=== PATIENT | female | born 2005 | race Caucasian/White ===

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

== ENCOUNTER 2023-08-09 08:38 | Emergency (ER) | payer MEDICAID, SELFPAY ==
[2023-08-09 08:41] VITALS: PULSE 118; RESP 18; TEMP 38.1; O2SAT 95; BMI 30.9
[2023-08-09 08:45] VITALS: BP 126/95
--- NOTE | 2023-08-09 08:54 | XRR_ITS ---
PROCEDURE INFORMATION: Exam: XR Chest Exam date and time: 08/09/2023 9:07 AM Age: 17 years old Clinical indication: Cough and fever; Additional info: Fever cough TECHNIQUE: Imaging protocol: Radiologic exam of the chest. Views: 1 view. COMPARISON: CR XR chest 2V* [id number] 03/19/2020 10:22 AM FINDINGS: Lungs: Unremarkable. No consolidation. Pleural spaces: Unremarkable. No pleural effusion. No pneumothorax. Heart/Mediastinum: Unremarkable. No cardiomegaly. Bones/joints: Unremarkable. XR/XR chest 1V portable [id number] IMPRESSION: No acute findings.
[2023-08-09] MEDS: acetaminophen 500 mg Tablet 1000 MG PO (09:15)
[2023-08-09 09:27] LABS: Basophils % 0.2 %; Hematocrit 45.6 % (36-47); Lymphocytes # 0.7 10^3/uL (1.5-6.5); Lymphocytes % 11.5 %; Mean Corpuscular HGB Conc 32.9 g/dL (30-55); Mean Corpuscular Hemoglobin 30.1 pg (27-33); Mean Corpuscular Volume 91.6 fl (85-98); Mean Platelet Volume 10.2 fL (7.4-10.4); Monocytes # 0.3 10^3/uL (0.2-0.9); Monocytes % 5.4 %; Neutrophils # 5.02 10^3/uL (1.8-8.0); Neutrophils % 82.6 %; Nucleated Red Blood Cells % 0 %; Platelet Count 154 10^3/cmm (157-399); Red Blood Count 4.98 10^6/uL (3.85-5.65); Red Cell Distribution Width 12.1 % (12.1-15.1); White Blood Count 6.08 10^3/uL (4.5-13.0)
--- NOTE | 2023-08-09 09:40 | ED_ITS ---
HPI - Fever 2 General: Chief Complaint: Fever Stated Complaint: fever, cough Time Seen by Provider: 08/09/23 09:10 History of Present Illness: Patient presents to the ER today for fever and cough. Started Saturday. Patient verbalizes some nausea. She has been taking some OTC meds but they do not seem to be working. Patient was tested for COVID yesterday and she said it was negative advertent great. On arrival today patient's temperature is 100.5 and her pulse is 118. Patient does not appear toxic. Patient also complains of sore throat. PFSH ED 2 PFSH: Medical History Gross hematuria Recurrent UTI Surgical History S/P tonsillectomy and adenoidectomy H/O thumb surgery Family History Mother Healthy adult Father Healthy adult Social History Smoking and tobacco/nicotine status: never used tobacco/nicotine Alcohol intake: never Substance/Drug Use: never Marital status: Single Current occupational status: employed Physical Exam 2 Const: COMMON NORMALS: no acute distress, average body habitus, patient oriented x3, no limitations, healthy appearing, alert and well nourished HENMT: COMMON NORMALS: normocephalic, atraumatic, hearing grossly normal bilaterally, external ears normal, Normal external nose present and moist oral mucous membranes; oropharynx not normal (Reddened posterior pharynx) HEAD & SCALP: n ormocephalic and atraumatic NOSE: Normal external nose present EXTERNAL EAR: Yes external ears normal Eye: COMMON NORMALS: Equal, round and reactive pupils present, EOMs intact bilaterally, conjunctivae normal and no scleral icterus CONJUNCTIVA: Yes conjunctivae normal PUPIL: Yes Equal, round and reactive pupils present Neck/C-Spine: COMMON NORMALS: full ROM, supple, no meningeal signs, no JVD and Thyroid normal; negative for no lymphadenopathy (Lymphadenopathy tender to palpation) T HYROID: Thyroid normal Chest: COMMONS NORMALS: normal inspection of the chest and normal palpation of entire chest wall Resp: COMMON NORMALS: normal respiratory effort, No retractions, No use of accessory muscles and clear to auscultation bilaterally AUSCULTATION: clear to auscultation bilaterally Cardio: COMMON NORMALS: no JVD, regular rhythm, S1 normal heart sound present, S2 normal heart sound present, No gallops present (Cardio), No clicks present (Cardio), No murmurs present (Cardio) and No rub (Cardio); negative for regular rate (Mildly tachycardic) RATE: abnormal rate (Mildly tachycardic) RHYTHM: regular rhythm HEART SOUNDS: S1 normal heart sound present and S2 normal heart sound present GI: COMMON NORMALS: Normal to inspection, nondistended, normoactive bowel sounds present, Soft to palpation, non-tender, No hepatosplenomegaly present and no masses PALPATION: Yes Soft to palpation and Yes No hepatosplenomegaly present Neuro: COMMON NORMALS: patient oriented x3 SENSORIUM/ORIENTATION: Yes alert MENINGEAL SIGNS: Yes no meningeal signs Course 2 Vital Signs: Vital signs: Vital Signs Temperature 100.5 F H 08/09/23 08:41 Pulse Rate 118 H 08/09/23 08:41 Respiratory Rate 18 08/09/23 08:41 Blood Pressure 126/95 08/09/23 08:45 Pulse Oximetry 95 08/09/23 08:41 Oxygen Delivery Me thod Room Air 08/09/23 08:41 MDM - Fever Medical Decision Making Patient presents with cough and fever. Patient had CBC CMP group A strep and urinalysis performed along with chest x-ray. All of which was essentially benign. Patient states she had a COVID done yesterday at [facility]. Which was negative. Patient will be discharged with diagnosis of URI and fever and should follow-up with her PCP on an as-needed basis. Differential Diagnosis Unlikely abdominal pain, acute appendicitis, calculus of kidney, constipation, diverticulitis, endometriosis, gastroenteritis, pancreatitis or small bowel obstruction Medical Records I reviewed the patient's medical records. Lab Data I reviewed the patient's lab results. 08/09/23 09:19 08/09/23 09:19 Radiology Impressions Chest X-Ray 08/09/23 08:54 IMPRESSION: No acute findings. Laboratory Results WBC 6.08 10^3/uL (4.5-13.0) 08/09/23 09:19 RBC 4.98 10^6/uL (3.85-5.65) 08/09/23 09:19 Hgb 15.00 g/dL (12.4-14.8) H 08/09/23 09:19 Hct 45.6 % (36-47) 08/09/23 09:19 MCV 91.6 fl (85-98) 08/09/23 09:19 MCH 30.1 pg (27-33) 08/09/23 09:19 MCHC 32.9 g/dL (30-55) 08/09/23 09:19 RDW 12.1 % (12.1-15.1) 08/09/23 09:19 Plt Count 154 10^3/cmm (157-399) L 08/09/23 09:19 MPV 10.2 fL (7.4-10.4) 08/09/23 09:19 Neut % (Auto) 82.6 % 08/09/23 09:19 Lymph % (Auto) 11.5 % 08/09/23 09:19 [place] % (Auto) 5.4 % 08/09/23 09:19 Eos % (Auto) 0.0 % 08/09/23 09:19 Baso % (Auto) 0.2 % 08/09/23 09:19 Neut # (Auto) 5.02 10^3/uL (1.8-8.0) 08/09/23 09:19 Lymph # (Auto) 0.7 10^3/uL (1.5-6.5) L 08/09/23 09:19 [place] # (Auto) 0.3 10^3/uL (0.2-0.9) 08/09/23 09:19 Eos # (Auto) 0.0 10^3/uL (0.0-0.8) 08/09/23 09:19 Baso # (Auto) 0.0 10^3/uL (0.0-0.1) 08/09/23 09:19 Nucleated RBC % (auto) 0 % 08/09/23 09:19 Nucleated RBCs # 0.0 /100WBC 08/09/23 09:19 Sodium 136 mmol/L (136-145) 08/09/23 09:19 Potassium 3.7 mmol/L (3.5-5.1) 08/09/23 09:19 Chloride 103 mmol/L (98-107) 08/09/23 09:19 Carbon Dioxide 21 mmol/L (22-29) L 08/09/23 09:19 Anion Gap 15.7 (5-19) 08/09/23 09:19 BUN 9 mg/dL (6-20) 08/09/23 09:19 Creatinine 0.7 mg/dL (0.5-0.9) 08/09/23 09:19 GFR Calculation 107.8 mL/min (90-130) 08/09/23 09:19 Glucose 135 mg/dL (65-115) H 08/09/23 09:19 Calculated Osmolality 283 mOsm/kg (285-295) L 08/09/23 09:19 Calcium 9.2 mg/dL (8.5-10.5) 08/09/23 09:19 Total Bilirubin 0.3 mg/dL (0.15-1.2) 08/09/23 09:19 AST 24 U/L (0-32) 08/09/23 09:19 ALT 24 U/L (0-33) 08/09/23 09:19 Alkaline Phosphatase 76 U/L (35-105) 08/09/23 09:19 Total Protein 7.5 g/dL (6.6-8.7) 08/09/23 09:19 Albumin 4.2 g/dL (3.5-5.2) 08/09/23 09:19 Globulin 3.3 g/dL (1.3-4.6) 08/09/23 09:19 Urine Color Yellow (Yellow) 08/09/23 09:03 Urine Appearance Hazy (CLEAR) A 08/09/23 09:03 Urine pH 5 (5-7) 08/09/23 09:03 Ur Specific [place] 1.015 (1.005-1.030) 08/09/23 09:03 Urine Protein 1+ (Negative) H 08/09/23 09:03 Urine Glucose (UA) Norm (Normal) 08/09/23 09:03 Urine Ketones 2+ (Negative) H 08/09/23 09:03 Urine Blood Trace (Negative) H 08/09/23 09:03 Urine Nitrate Negative (Negative) 08/09/23 09:03 Urine Bilirubin Neg (Negative) 08/09/23 09:03 Urine Urobilinogen 1 mg/dL (Negative) H 08/09/23 09:03 Ur Leukocyte Esterase 1+ (Negative) H 08/09/23 09:03 Urine RBC 0-4 /hpf (0-2) H 08/09/23 09:03 Urine WBC 10-15 /hpf (0-5) H 08/09/23 09:03 Ur Squamous Epith Cells 55-80 /hpf (0-5) H 08/09/23 09:03 Amorphous Sediment Not Reportable 08/09/23 09:03 Urine Bacteria 4+ /hpf (NONE) H 08/09/23 09:03 Group A Strep Rapid Negative (Negative) 08/09/23 09:32 All radiology interpretation(s) finalized by discharge Discharge Plan Discharge Patient Disposition: Home Clinical Impression: Viral URI, Fever Condition: Stable Prescriptions: No Action Vicks DayQuil-NyQuil 10-5-325mg(d)/ 15-325-6.25mg Capsule, Sequential 2 cap PO Q6H Discharge Orders: Discharge ED (Routine); Ordered 08/09/23 Ordered By: Casper Valadez Patient Instructions: Upper Respiratory Infection (ED), Fever - Adult Activity Restrictions/Additional Instructions: Please use Tylenol or ibuprofen to control your fever. Please push plenty of fluids. Please follow-up with your family practice physician within the next 7 to 10 days for further evaluation and treatment as needed. Coding Level of Care Code ED Manager Creative for Carlin Bernal
[2023-08-09 09:48] LABS: Alanine Aminotransferase 24 U/L (0-33); Albumin Level 4.2 g/dL (3.5-5.2); Alkaline Phosphatase 76 U/L (35-105); Anion Gap 15.7 (5-19); Aspartate Amino Transferase 24 U/L (0-32); Blood Urea Nitrogen 9 mg/dL (6-20); Calcium 9.2 mg/dL (8.5-10.5); Carbon Dioxide 21 mmol/L (22-29); Chloride 103 mmol/L (98-107); Globulin 3.3 g/dL (1.3-4.6); Glomerular Filtration Rate 107.8 mL/min (90-130); Glucose 135 mg/dL (65-115); Osmolality Calculated 283 mOsm/kg (285-295); Potassium 3.7 mmol/L (3.5-5.1); Sodium 136 mmol/L (136-145); Total Bilirubin 0.3 mg/dL (0.15-1.2); Total Protein 7.5 g/dL (6.6-8.7)
[2023-08-09 10:16] LABS: Add Urine Culture? No; Add Urine Microscopic? YES; Bacteria Urine 4+ /hpf; Bilirubin Urine Neg (Negative); Blood Urine Trace (Negative); Glucose Urine UA Norm (Normal); Ketones Urine 2+ (Negative); Leukocyte Esterase Urine 1+ (Negative); Nitrate Urine Negative (Negative); Protein Urine 1+ (Negative); RBC Urine 0-4 /hpf (0-2); Specific Gravity, Urine 1.015 (1.005-1.030); Squamous Epithelial Cell Urine 55-80 /hpf (0-5); Urine Appearance Hazy (CLEAR); Urine Color Yellow (Yellow); Urobilinogen Urine 1 mg/dL (Negative); pH Urine 5 (5-7)
[2023-08-09 10:23] LABS: Rapid Strep A Test Negative (Negative)
== END 2023-08-09 10:33 | disposition home or self-care (01) ==
PROVIDERS: Emergency Provider Emergency Medicine
DX: J06.9 Acute upper respiratory infection, unspecified (principal)
CPT/HCPCS: 36415; 71045; 80053; 81001; 85025; 87081; 87880; 99284

== ENCOUNTER 2024-02-07 05:41 | Emergency (ER) | payer MEDICAID, SELFPAY ==
[2024-02-07 05:49] VITALS: BP 127/78; PULSE 84; RESP 20; TEMP 36.7; O2SAT 98; BMI 31.3
--- NOTE | 2024-02-07 06:09 | ED_ITS ---
HPI - Nausea/Vomiting/Diarrhea 2 General: Chief complaint: Nausea/Vomiting/Diarrhea Stated complaint: abd pain n/v/d bloat..thought food poisoning Time Seen by Provider: 02/07/24 05:53 Source: patient Mode of arrival: ambulatory History of Present Illness: 18-year-old female presents emergency ro om complaining of abdominal discomfort began over the last 4 days. She had nausea and vomiting initially that stopped several days ago but then she began having some loose stools and diarrhea she feels very bloated. She denies any dysuria urgency or frequency. She states she has some chronic diarrhea but no hematochezia. She took some Pepto-Bismol without relief. MD elicited complaint: nausea, vomiting and diarrhea Onset (ago): day(s) (4) Description of vomiting: food contents and watery Associated nausea: Yes Associated abdominal pain: Yes Location of pain: Diffuse Severity: mild Quality: cramping Exacerbating factors: none Relieving factors: none Associated symtoms: Reports anorexia and nausea; Denies altered mental status, anxiety, bloating, change in vision, chest pain, cough, diaphoresis, decreased urine output, dizziness, dysuria, epistaxis, fatigue, fecal incontinence, fevers/chills, headache(s), malaise, myalgias, numbness, palpitations, rash, short of breath, syncope, tenesmus, tinnitus or weakness Treatment prior to arrival: other (Pepto-Bismol) Review of Systems 2 Const: Denies: fever(s), chills, fatigue, malaise or diaphoresis Eyes: Denies: change in vision ENMT: Denies: tinnitus or epistaxis Card: Denies: chest pain, palpitations or syncope Resp: Denies: dyspnea GI: Reports: nausea; Denies: abdominal pain, bloating or fecal incontinence : Denies: dysuria, urinary frequency or urinary urgency Musc: Denies: neck pain or back pain Skin/Breast: Denies: rash Neuro: Denies: headache(s) or dizziness Psych: Denies: anxiety PFSH ED 2 PFSH: Medical History Gross hematuria Recurrent UTI Surgical History S/P tonsillectomy and adenoidectomy H/O thumb surgery Family History Mother Healthy adult Father Healthy adult Social History Smoking and tobacco/nicotine status: never used tobacco/nicotine Alcohol intake: never Substance/Drug Use: never Marital status: Single Current occupational status: employed Physical Exam 2 Const: COMMON NORMALS: no acute distress EXAM LIMITATIONS: no altered mental status GENERAL APPEARANCE: cooperative and comfortable O RIENTATION/CONSCIOUSNESS: Yes awake, Yes oriented to person, Yes oriented to place and Yes oriented to time HENMT: COMMON NORMALS: normocephalic, atraumatic and hearing grossly normal bilaterally HEAD & SCALP: normocephalic and atraumatic Resp: COMMON NORMALS: normal respiratory effort, No retractions, No use of accessory muscles and clear to auscultation bilaterally AUSCULTATION: clear to auscultation bilaterally Cardio: COMMON NORMALS: regular rate, regular rhythm and No murmurs present (Cardio) RATE: regular rate RHYTHM: regular rhythm GI: COMMON NORMALS: Soft to palpation and No hepatosplenomegaly present A USCULTATION: Yes normoactive bowel sounds PALPATION: Yes Soft to palpation, No Tenderness to palpation present (GI), No Guarding due to palpation present (GI) and Yes No hepatosplenomegaly present Extremity: COMMON NORMALS: normal to inspection, capillary refill normal, no clubbing, cyanosis or edema, no calf tenderness and no pedal edema Neuro: SENSORIUM/ORIENTATION: Yes oriented to person, Yes oriented to place and Yes oriented to time Skin: COMMON NORMALS: no rashes or lesions noted GENERAL SKIN EXAM: no rashes or lesions noted Course 2 Vital Signs: Vital signs: Vital Signs Temperature 98.1 F 02/07/24 05:49 Pulse Rate 81 02/07/24 06:32 Respiratory Rate 16 02/07/24 06:32 Blood Pressure 91/77 02/07/24 06:32 Pulse Oximetry 96 02/07/24 06:32 Oxygen Delivery Me thod Room Air 02/07/24 06:32 MDM - Nausea/Vomiting/Diarrhea Medical Decision Making No leukocytosis. Mild elevation of liver enzymes but no right upper quadrant pain on initial exam or repeat exam. Your symptoms already do seem to be improving. She states she is back at her normal baseline stools which are chronically loose. Nothing at this time suggestive of an acute cholecystitis. Will discharge patient home on clear liquid diet ondansetron as needed advance diet as tolerated. She has worsening or persistent symptoms or symptoms change return to the emergency room Medical Records I reviewed the patient's medical records. Lab Data I reviewed the patient's lab results. 02/07/24 05:57 02/07/24 05:57 Laboratory Results WBC 4.39 10^3/uL (4.5-13.0) L 02/07/24 05:57 RBC 5.00 10^6/uL (3.85-5.65) 02/07/24 05:57 Hgb 15.00 g/dL (12.4-14.8) H 02/07/24 05:57 Hct 46.1 % (36-47) 02/07/24 05:57 MCV 92.2 fl (85-98) 02/07/24 05:57 MCH 30.0 pg (27-33) 02/07/24 05:57 MCHC 32.5 g/dL (30-55) 02/07/24 05:57 RDW 12.5 % (12.1-15.1) 02/07/24 05:57 Plt Count 199 10^3/cmm (157-399) 02/07/24 05:57 MPV 10.0 fL (7.4-10.4) 02/07/24 05:57 Neut % (Auto) 45.3 % 02/07/24 05:57 Lymph % (Auto) 43.3 % 02/07/24 05:57 [place] % (Auto) 10.3 % 02/07/24 05:57 Eos % (Auto) 0.7 % 02/07/24 05:57 Baso % (Auto) 0.2 % 02/07/24 05:57 Neut # (Auto) 1.99 10^3/uL (1.8-8.0) 02/07/24 05:57 Lymph # (Auto) 1.9 10^3/uL (1.5-6.5) 02/07/24 05:57 [place] # (Auto) 0.5 10^3/uL (0.2-0.9) 02/07/24 05:57 Eos # (Auto) 0.0 10^3/uL (0.0-0.8) 02/07/24 05:57 Baso # (Auto) 0.0 10^3/uL (0.0-0.1) 02/07/24 05:57 Nucleated RBC % (auto) 0 % 02/07/24 05:57 Nucleated RBCs # 0.0 /100WBC 02/07/24 05:57 Sodium 140 mmol/L (136-145) 02/07/24 05:57 Potassium 3.4 mmol/L (3.5-5.1) L 02/07/24 05:57 Chloride 106 mmol/L (98-107) 02/07/24 05:57 Carbon Dioxide 21 mmol/L (22-29) L 02/07/24 05:57 Anion Gap 16.4 (5-19) 02/07/24 05:57 BUN 13 mg/dL (6-20) 02/07/24 05:57 Creatinine 0.7 mg/dL (0.5-0.9) 02/07/24 05:57 GFR Calculation 106.7 mL/min (90-130) 02/07/24 05:57 Glucose 89 mg/dL (65-115) 02/07/24 05:57 Calculated Osmolality 290 mOsm/kg (285-295) 02/07/24 05:57 Calcium 8.8 mg/dL (8.5-10.5) 02/07/24 05:57 Total Bilirubin 0.2 mg/dL (0.15-1.2) 02/07/24 05:57 AST 35 U/L (0-32) H 02/07/24 05:57 ALT 66 U/L (0-33) H 02/07/24 05:57 Alkaline Phosphatase 78 U/L (35-105) 02/07/24 05:57 Total Protein 7.9 g/dL (6.6-8.7) 02/07/24 05:57 Albumin 4.3 g/dL (3.5-5.2) 02/07/24 05:57 Globulin 3.6 g/dL (1.3-4.6) 02/07/24 05:57 Lipase 28 U/L (13-60) 02/07/24 05:57 Urine Color Yellow (Yellow) 02/07/24 06:18 Urine Appearance Clear (CLEAR) 02/07/24 06:18 Urine pH 5 (5-7) 02/07/24 06:18 Ur Specific [place] 1.025 (1.005-1.030) 02/07/24 06:18 Urine Protein Trace (Negative) 02/07/24 06:18 Urine Glucose (UA) Norm (Normal) 02/07/24 06:18 Urine Ketones Negative (Negative) 02/07/24 06:18 Urine Blood Neg (Negative) 02/07/24 06:18 Urine Nitrate Negative 02/07/24 06:18 Urine Bilirubin Neg (Negative) 02/07/24 06:18 Urine Urobilinogen Neg mg/dL (Negative) 02/07/24 06:18 Ur Leukocyte Esterase Negative (Negative) 02/07/24 06:18 Urine RBC 0-4 /hpf (0-2) H 02/07/24 06:18 Urine WBC None /hpf (0-5) 02/07/24 06:18 Ur Squamous Epith Cells 10-15 /hpf (0-5) H 02/07/24 06:18 Amorphous Sediment Not Reportable 02/07/24 06:18 Urine Bacteria 2+ /hpf (NONE) H 02/07/24 06:18 Urine Mucus 2+ /hpf 02/07/24 06:18 No radiology studies performed this visit Discharge Plan Discharge Patient Disposition: Home Clinical Impression: Gastroenteritis Condition: Stable Prescriptions: New ondansetron HCl 4 mg tablet 4 mg PO Q6H PRN (Reason: nausea and vomiting) Qty: 20 0RF No Action Enskyce 0.15-0.03 mg tablet 1 tab PO DAILY Discharge Orders: Discharge ED (Routine); Ordered 02/07/24 Ordered By: Karl Murphy Discharge Diet: Usual diet Discharge Activity: Increase activity as tolerated Patient Instructions: Gastroenteritis (ED), Opioid Safety, Pain Management Activity Restrictions/Additional Instructions: Thank you for choosing [facility] for your healthcare needs today. It is very important that you follow up as instructed or that you return to the Emergency Department should you have concerns or if your condition changes or worsens in any way. You are seen in the emergency room with complaints of nausea vomiting and diarrhea. Your abdominal exam was did not show signs of an acute abdomen your laboratory studies did not show elevated white count. Recommend clear liquid diet for 24 to 48 hours return if you have further problems. Coding Level of Care Code ED Manager Corporate for Carlin Bernal
[2024-02-07 06:15] LABS: Basophils % 0.2 %; Eosinophils % 0.7 %; Hematocrit 46.1 % (36-47); Lymphocytes # 1.9 10^3/uL (1.5-6.5); Lymphocytes % 43.3 %; Mean Corpuscular HGB Conc 32.5 g/dL (30-55); Mean Corpuscular Volume 92.2 fl (85-98); Monocytes # 0.5 10^3/uL (0.2-0.9); Monocytes % 10.3 %; Neutrophils # 1.99 10^3/uL (1.8-8.0); Neutrophils % 45.3 %; Nucleated Red Blood Cells % 0 %; Platelet Count 199 10^3/cmm (157-399); Red Cell Distribution Width 12.5 % (12.1-15.1); White Blood Count 4.39 10^3/uL (4.5-13.0)
[2024-02-07] MEDS: sodium chloride 0.9% 1,000 ML 999 ML IV (06:28)
[2024-02-07] MEDS: ondansetron 2 mg/ML SDV 2 mL 4 MG IVP (06:28)
[2024-02-07 06:29] LABS: Alanine Aminotransferase 66 U/L (0-33); Albumin Level 4.3 g/dL (3.5-5.2); Alkaline Phosphatase 78 U/L (35-105); Anion Gap 16.4 (5-19); Aspartate Amino Transferase 35 U/L (0-32); Blood Urea Nitrogen 13 mg/dL (6-20); Calcium 8.8 mg/dL (8.5-10.5); Carbon Dioxide 21 mmol/L (22-29); Chloride 106 mmol/L (98-107); Globulin 3.6 g/dL (1.3-4.6); Glomerular Filtration Rate 106.7 mL/min (90-130); Glucose 89 mg/dL (65-115); Lipase 28 U/L (13-60); Osmolality Calculated 290 mOsm/kg (285-295); Potassium 3.4 mmol/L (3.5-5.1); Sodium 140 mmol/L (136-145); Total Bilirubin 0.2 mg/dL (0.15-1.2); Total Protein 7.9 g/dL (6.6-8.7)
[2024-02-07 06:32] VITALS: BP 91/77; PULSE 81; RESP 16; O2SAT 96
[2024-02-07 06:37] LABS: Bilirubin Urine Neg (Negative); Blood Urine Neg (Negative); Glucose Urine UA Norm (Normal); Ketones Urine Negative (Negative); Leukocyte Esterase Urine Negative (Negative); Nitrate Urine Negative; Protein Urine Trace (Negative); Specific Gravity, Urine 1.025 (1.005-1.030); Urine Appearance Clear (CLEAR); Urine Color Yellow (Yellow); Urobilinogen Urine Neg (Negative); pH Urine 5 (5-7)
[2024-02-07 06:38] LABS: Add Urine Microscopic? YES
[2024-02-07 06:39] LABS: Add Urine Culture? No; Bacteria Urine 2+ /hpf; Mucus Urine 2+ /hpf; RBC Urine 0-4 /hpf (0-2)
[2024-02-07 08:06] VITALS: BP 97/78; PULSE 63; O2SAT 97
== END 2024-02-07 08:09 | disposition home or self-care (01) ==
PROVIDERS: Emergency Provider Family Medicine
DX: K52.9 Noninfective gastroenteritis and colitis, unspecified (principal)
CPT/HCPCS: 80053; 81001; 83690; 85025; 96374; 99284; J2405; J7030

== ENCOUNTER 2024-12-01 11:51 | Emergency (ER) | payer MEDICAID, SELFPAY ==
[2024-12-01 12:08] VITALS: BP 97/61; PULSE 84; RESP 16; TEMP 36.7; O2SAT 99
[2024-12-01 12:39] LABS: Basophils % 0.1 %; Eosinophils % 0.2 %; Hematocrit 40.6 % (36-47); Lymphocytes # 1.5 10^3/uL (0.8-4.8); Lymphocytes % 16.4 %; Mean Corpuscular HGB Conc 33.5 g/dL (30-55); Mean Corpuscular Hemoglobin 30.3 pg (27-33); Mean Corpuscular Volume 90.4 fl (85-98); Mean Platelet Volume 9.7 fL (7.4-10.4); Monocytes # 0.5 10^3/uL (0.2-0.9); Monocytes % 5.4 %; Neutrophils # 7.01 10^3/uL (1.8-7.7); Neutrophils % 77.8 %; Nucleated Red Blood Cells % 0 %; Platelet Count 254 10^3/cmm (157-399); Red Blood Count 4.49 10^6/uL (3.85-5.65); Red Cell Distribution Width 12.2 % (12.1-15.1); White Blood Count 9.02 10^3/uL (3.29-11.43)
[2024-12-01 12:51] LABS: HCG, Serum Qual Positive (Negative)
[2024-12-01 13:04] LABS: Alanine Aminotransferase 19 U/L (0-33); Alkaline Phosphatase 71 U/L (35-105); Anion Gap 16.8 (5-19); Aspartate Amino Transferase 17 U/L (0-32); Blood Urea Nitrogen 8 mg/dL (6-20); Calcium 9.1 mg/dL (8.5-10.5); Carbon Dioxide 23 mmol/L (22-29); Chloride 104 mmol/L (98-107); Creatinine Clr Calc Pharmacy 201.3672; Globulin 2.9 g/dL (1.3-4.6); Glomerular Filtration Rate 155.7 mL/min (90-130); Glucose 90 mg/dL (65-115); Lipase 28 U/L (13-60); Osmolality Calculated 288 mOsm/kg (285-295); Potassium 3.8 mmol/L (3.5-5.1); Sodium 140 mmol/L (136-145); Total Bilirubin 0.2 mg/dL (0.15-1.2); Total Protein 6.9 g/dL (6.6-8.7)
--- NOTE | 2024-12-01 15:21 | USR_ITS ---
PROCEDURE INFORMATION: Exam: US First Trimester, Transabdominal and US , Transvaginal Exam date and time: 12/01/2024 4:04 PM Age: 19 years old Clinical indication: Screening exam; Routine US, uterus; Additional info: 6 weeks preg, abd pain LABS AND CLINICAL REPORTS: Last menstrual period start date: 10/07/2024 TECHNIQUE: Imaging protocol: Real-time transabdominal obstetrical ultrasound of the maternal pelvis and a first trimester , less than 14 weeks 0 days, with image documentation. Transvaginal imaging was used for better evaluation of the fetus, adnexa, and/or cervix. COMPARISON: US pelvic complete* [id number] 03/10/2022 7:15 PM FINDINGS: GESTATION: Gestation: Single live intrauterine . Normal-appearing gestational sac. Normal-appearing pole. Normal-appearing yolk sac. Embryo/ cardiac activity (BPM): 152 bpm. Extra-embryonic membranes/Placenta: No evidence of subchorionic hemorrhage. Amniotic/Chorionic fluid: Normal amount of amniotic fluid. BIOMETRY: Gestational age (AUA): Estimated gestational age is 7 weeks and 4 days by ultrasound measurements. Seven weeks 6 days with menstrual dating. Estimated due date (AUA): Estimated date of delivery by ultrasound is July 16, 2025. July 14, 2025 with menstrual dating. MATERNAL: Uterus: Otherwise, unremarkable uterus. Cervix: Unremarkable. Endocervical canal is closed. Right ovary/adnexa: Unremarkable right ovary. No solid right adnexal masses. Left ovary/adnexa: Left ovary not visualized. No solid left adnexal mass is identified. Intraperitoneal space: No free fluid. US/US OB <=14 wk fetus w transvag IMPRESSION: Normal-appearing single live intrauterine at 7 weeks 4 days by ultrasound measurements and 7 weeks 6 days by menstrual dating.
[2024-12-01 15:42] VITALS: BP 112/76; PULSE 76; O2SAT 100
[2024-12-01] MEDS: acetaminophen 325 mg Tablet 650 MG PO (15:43)
[2024-12-01] MEDS: sodium chloride 0.9% 1,000 ML 999 ML IV (15:43)
[2024-12-01 16:00] VITALS: BP 109/80; PULSE 83; O2SAT 100
[2024-12-01 16:26] LABS: Bilirubin Urine Negative (Negative); Blood Urine Negative (Negative); Glucose Urine UA Negative (Normal); Ketones Urine Negative (Negative); Leukocyte Esterase Urine Trace (Negative); Nitrate Urine Negative (Negative); Protein Urine Negative (Negative); Specific Gravity, Urine 1.025 (1.005-1.030); Urine Appearance Clear (CLEAR); Urine Color Yellow (Yellow)
[2024-12-01 16:31] LABS: Add Urine Microscopic? YES; Bacteria Urine None Seen /hpf; RBC Urine 0-2 /hpf (0-2); Squamous Epithelial Cell Urine 0-5 /hpf (0-5); WBC Urine 0-5 /hpf (0-5)
[2024-12-01 16:59] LABS: Add Urine Culture? No
[2024-12-01 17:30] VITALS: BP 98/62; PULSE 78; O2SAT 100
--- NOTE | 2024-12-01 18:11 | ED_ITS ---
HPI - Abdominal Pain 2 General: Chief Complaint: Abdominal Pain Stated Complaint: abd pain Time Seen by Provider: 12/01/24 14:47 History of Present Illness: 19-year-old female with recent approximately 6 weeks is presenting with left lower quadrant abdominal pain has been going on for the past couple days as well associated with gurgling sounds in her abdomen associate with nausea no vomiting some loose stools. Denies any urinary symptoms denies fever. She has not had an ultrasound yet. Associated Symptoms: Reports diarrhea and nausea; Denies chills, dysuria, fever(s) and vomiting Related Data Home Medications ?Medication ?Instructions ?Recorded ?Confirmed No Known Home Medications 12/01/2411/11 Allergies Allergy/AdvReac Type Severity Reaction Status Date / Time No Known Allergies Allergy Verified 08/09/23 08:45 Review of Systems 2 Const: Denies: fever(s) or chills Eyes: Denies: change in vision ENMT: Denies: throat pain Card: Denies: chest pain, palpitations or irregular heart rhythm Resp: Denies: dyspnea or productive cough GI: Reports: abdominal pain, nausea and diarrhea; Denies: vomiting : Denies: flank pain, difficulty voiding, dysuria, urinary urgency, vaginal bleeding or vaginal discharge Musc: Denies: back pain or extremity pain Skin/Breast: Denies: rash Neuro: Reports: headache(s) PFSH ED 2 PFSH: Medical History Gross hematuria Recurrent UTI Surgical History S/P tonsillectomy and adenoidectomy H/O thumb surgery Family History Mother Healthy adult Father Healthy adult Social History Smoking and tobacco/nicotine status: never used tobacco/nicotine Alcohol intake: never Substance/Drug Use: never Marital status: Single Current occupational status: employed Physical Exam 2 Const: COMMON NORMALS: no acute distress, patient oriented x3 and alert HENMT: COMMON NORMALS: normocephalic HEAD & SCALP: normocephalic Eye: COMMON NORMALS: Equal, round and reactive pupils present, EOMs intact bilaterally and conjunctivae normal CONJUNCTIVA: Yes conjunctivae normal P UPIL: Yes Equal, round and reactive pupils present Neck/C-Spine: COMMON NORMALS: full ROM, no lymphadenopathy and no JVD Chest: COMMONS NORMALS: normal inspection of the chest Resp: COMMON NORMALS: normal respiratory effort, No use of accessory muscles and clear to auscultation bilaterally EFFORT & INSPECTION: Yes able to speak in complete sentences AUSCULTATION: clear to auscultation bilaterally, no crackles, no rales, no rhonchi and no wheezes Cardio: COMMON NORMALS: no JVD, regular rhythm, S1 normal heart sound present and S2 normal heart sound present RHYTHM: regular rhythm HEART SOUNDS: S1 normal heart sound present and S2 normal heart sound present GI: COMMON NORMALS: Normal to inspection, nondistended, normoactive bowel sounds present, Soft to palpation and non-tender PALPATION: Yes Soft to palpation : COMMON NORMALS: Yes no CVA tenderness BLADDER/KIDNEY EXAM: Yes no CVA tenderness Back/Pelvis: COMMON NORMALS: no CVA tenderness Extremity: COMMON NORMALS: normal to inspection, full ROM and capillary refill normal Neuro: COMMON NORMALS: patient oriented x3 and CN's II-XII intact bilaterally SENSORIUM/ORIENTATION: Yes alert Course 2 Vital Signs: Vital signs: Vital Signs Temperature 98.1 F 12/01/24 12:08 Pulse Rate 78 12/01/24 17:30 Respiratory Rate 16 12/01/24 12:08 Blood Pressure 98/62 12/01/24 17:30 Pulse Oximetry 100 12/01/24 17:30 Oxygen Delivery Me thod Room Air 12/01/24 17:30 MDM - Abdominal Pain Medical Decision Making Patient with left lower quadrant abdominal pain in first trimester evaluated with workup consistent with likely abdominal crampy pain secondary to acute gastroenteritis or viral GI illness. UA negative for acute UTI. Ultrasound demonstrates IUP that is in place, do not suspect ectopic at this point. IUP seems to be normal. No anemia and no leukocytosis on the CBC. Her Rh is positive otherwise no significant abnormalities in the workup. She does feel improved she is well-appearing she is comfortable she is stable for discharge at this time all results discussed with the patient. Lab Data 12/01/24 12:33 12/01/24 12:33 Labs/Radiology: Radiology Impressions Obstetrics Ultrasound 12/01/24 15:21 IMPRESSION: Normal-appearing single live intrauterine at 7 weeks 4 days by ultrasound measurements and 7 weeks 6 days by menstrual dating. Laboratory Results WBC 9.02 10^3/uL (3.29-11.43) 12/01/24 12:33 RBC 4.49 10^6/uL (3.85-5.65) 12/01/24 12:33 Hgb 13.60 g/dL (11.27-16.99) 12/01/24 12:33 Hct 40.6 % (36-47) 12/01/24 12:33 MCV 90.4 fl (85-98) 12/01/24 12:33 MCH 30.3 pg (27-33) 12/01/24 12:33 MCHC 33.5 g/dL (30-55) 12/01/24 12:33 RDW 12.2 % (12.1-15.1) 12/01/24 12:33 Plt Count 254 10^3/cmm (157-399) 12/01/24 12:33 MPV 9.7 fL (7.4-10.4) 12/01/24 12:33 Neut % (Auto) 77.8 % 12/01/24 12:33 Lymph % (Auto) 16.4 % 12/01/24 12:33 [place] % (Auto) 5.4 % 12/01/24 12:33 Eos % (Auto) 0.2 % 12/01/24 12:33 Baso % (Auto) 0.1 % 12/01/24 12:33 Neut # (Auto) 7.01 10^3/uL (1.8-7.7) 12/01/24 12:33 Lymph # (Auto) 1.5 10^3/uL (0.8-4.8) 12/01/24 12:33 [place] # (Auto) 0.5 10^3/uL (0.2-0.9) 12/01/24 12:33 Eos # (Auto) 0.0 10^3/uL (0.0-0.8) 12/01/24 12:33 Baso # (Auto) 0.0 10^3/uL (0.0-0.1) 12/01/24 12:33 Nucleated RBC % (auto) 0 % 12/01/24 12:33 Nucleated RBCs # 0.0 /100WBC 12/01/24 12:33 Sodium 140 mmol/L (136-145) 12/01/24 12:33 Potassium 3.8 mmol/L (3.5-5.1) 12/01/24 12:33 Chloride 104 mmol/L (98-107) 12/01/24 12:33 Carbon Dioxide 23 mmol/L (22-29) 12/01/24 12:33 Anion Gap 16.8 (5-19) 12/01/24 12:33 BUN 8 mg/dL (6-20) 12/01/24 12:33 Creatinine 0.5 mg/dL (0.5-0.9) 12/01/24 12:33 GFR Calculation 155.7 mL/min (90-130) H 12/01/24 12:33 Glucose 90 mg/dL (65-115) 12/01/24 12:33 Calculated Osmolality 288 mOsm/kg (285-295) 12/01/24 12:33 Calcium 9.1 mg/dL (8.5-10.5) 12/01/24 12:33 Total Bilirubin 0.2 mg/dL (0.15-1.2) 12/01/24 12:33 AST 17 U/L (0-32) 12/01/24 12:33 ALT 19 U/L (0-33) 12/01/24 12:33 Alkaline Phosphatase 71 U/L (35-105) 12/01/24 12:33 Total Protein 6.9 g/dL (6.6-8.7) 12/01/24 12:33 Albumin 4.0 g/dL (3.5-5.2) 12/01/24 12:33 Globulin 2.9 g/dL (1.3-4.6) 12/01/24 12:33 Lipase 28 U/L (13-60) 12/01/24 12:33 HCG, Qual Positive (Negative) H 12/01/24 12:33 Ser , Semi-Qnt 52782.00 mIU/mL 12/01/24 12:33 Urine Color Yellow (Yellow) 12/01/24 16:08 Urine Appearance Clear (CLEAR) 12/01/24 16:08 Urine pH 6.0 (5-7) 12/01/24 16:08 Ur Specific [place] 1.025 (1.005-1.030) 12/01/24 16:08 Urine Protein Negative (Negative) 12/01/24 16:08 Urine Glucose (UA) Negative (Normal) 12/01/24 16:08 Urine Ketones Negative (Negative) 12/01/24 16:08 Urine Blood Negative (Negative) 12/01/24 16:08 Urine Nitrate Negative (Negative) 12/01/24 16:08 Urine Bilirubin Negative (Negative) 12/01/24 16:08 Urine Urobilinogen 1.0 mg/dL (Negative) 12/01/24 16:08 Ur Leukocyte Esterase Trace (Negative) A 12/01/24 16:08 Urine RBC 0-2 /hpf (0-2) 12/01/24 16:08 Urine WBC 0-5 /hpf (0-5) 12/01/24 16:08 Ur Squamous Epith Cells 0-5 /hpf (0-5) 12/01/24 16:08 Amorphous Sediment Not Reportable 12/01/24 16:08 Urine Bacteria None seen /hpf (NONE) 12/01/24 16:08 Hyaline Casts 0.40 /lpf 12/01/24 16:08 Blood Type A Positive 12/01/24 15:39 Rho(D) Type Rh positive 12/01/24 15:39 All radiology interpretation(s) finalized by discharge Discharge Plan Discharge Patient Disposition: Home Clinical Impression: Abdominal pain during in first trimester Condition: Stable Prescriptions: No Action No Known Home Medications Discharge Orders: Discharge ED (Routine); Ordered 12/01/24 Ordered By: Preston Gonzalez Patient Instructions: Abdominal Pain (ED) Print Language: Mauritian Coding Level of Care Code ED Ship Manager for Carlin Bernal
== END 2024-12-01 18:38 | disposition home or self-care (01) ==
PROVIDERS: Physician Assistant; Emergency Provider Emergency Medicine
DX: O26.891 Other specified pregnancy related conditions, first trimester (principal); Z3A.01 Less than 8 weeks gestation of pregnancy
CPT/HCPCS: 36415; 76801; 76817; 80053; 81001; 83690; 84702; 84703; 85025; 86900; 99284; J7030; J9999

== ENCOUNTER 2025-06-28 06:08 | Outpatient (CLI) | payer BC, MEDICAID, SELFPAY ==
[2025-06-28] VITALS (10 sets, daily range): BP systolic 104–127; BP diastolic 58–74; PULSE 71–86; BMI 39.4
== END 2025-06-28 08:54 | disposition home or self-care (01) ==
LOC: OPOB 06:09 → OBGYN 06:10
PROVIDERS: Visit Provider Family Medicine
DX: O26.899 Other specified pregnancy related conditions, unspecified trimester (principal); Z3A.00 Weeks of gestation of pregnancy not specified; R10.9 Unspecified abdominal pain
CPT/HCPCS: 59025; 99211

== ENCOUNTER 2025-06-28 15:41 | Outpatient (CLI) | payer BC, MEDICAID, SELFPAY ==
[2025-06-28] VITALS (9 sets, daily range): BP systolic 103–130; BP diastolic 54–86; PULSE 73–86; BMI 39.2
[2025-06-28 16:25] LABS: Glucose Urine UA Negative (Normal); Nitrate Urine Negative (Negative); Specific Gravity, Urine 1.022 (1.005-1.030)
--- NOTE | 2025-06-28 16:52 | USR_ITS ---
PROCEDURE INFORMATION: Exam: US Retroperitoneal, Complete, Kidneys and Bladder Exam date and time: 06/28/2025 5:18 PM Age: 19 years old Clinical indication: Other: Gross hematuria; ; Additional info: Pain, blood in urine TECHNIQUE: Imaging protocol: Real-time ultrasound of the retroperitoneum with image documentation. Complete exam focused on the bilateral kidneys and urinary bladder. COMPARISON: US OB <=14 wk fetus w transvag 12/01/2024 4:04 PM FINDINGS: Right kidney: Right kidney measures 10 cm. Some collecting system fullness although this is less pronounced than on the contralateral side. No definite stones. Left kidney: Left kidney measures 12 cm. Left-sided hydronephrosis. No definite stones identified. Urinary bladder: Collapsed not well evaluated US/US renal BI* [id number] IMPRESSION: Left-sided hydronephrosis
== END 2025-06-28 18:13 | disposition home or self-care (01) ==
LOC: OPOB 15:41 → OBGYN 15:42
PROVIDERS: Visit Provider Family Medicine
DX: O26.899 Other specified pregnancy related conditions, unspecified trimester (principal); Z3A.00 Weeks of gestation of pregnancy not specified; R25.2 Cramp and spasm
CPT/HCPCS: 59025; 76770; 81001; 87086; 99211; J9999

== ENCOUNTER 2025-07-02 11:41 | Outpatient (CLI) | payer BC, MEDICAID, SELFPAY ==
[2025-07-02 11:45] VITALS: BMI 39.2
[2025-07-02 11:51] VITALS: BP 126/76; PULSE 93
[2025-07-02 12:11] VITALS: BP 116/79; PULSE 90
[2025-07-02 12:24] LABS: Glucose Urine UA Negative (Normal); Nitrate Urine Negative (Negative); Specific Gravity, Urine 1.017 (1.005-1.030)
[2025-07-02 12:31] VITALS: BP 117/82; PULSE 96
[2025-07-02 12:51] VITALS: BP 113/69; PULSE 95
[2025-07-02 13:12] VITALS: BP 119/61; PULSE 94
== END 2025-07-02 13:30 | disposition home or self-care (01) ==
LOC: OPOB 11:41 → OBGYN 11:47
PROVIDERS: Visit Provider Family Medicine
DX: O26.899 Other specified pregnancy related conditions, unspecified trimester (principal); Z3A.00 Weeks of gestation of pregnancy not specified; R10.9 Unspecified abdominal pain; M54.50 Low back pain, unspecified
CPT/HCPCS: 59025; 81001; 87086; 99211; J0696; J9999

== ENCOUNTER 2025-07-15 07:48 | Inpatient (IN) | payer BC, MEDICAID, SELFPAY ==
[2025-07-15] VITALS (109 sets, daily range): BP systolic 116–166; BP diastolic 56–104; PULSE 70–118; RESP 15–18; TEMP 36.5–37.2; O2SAT 94–100; BMI 39.4
--- NOTE | 2025-07-15 07:54 | P.HP_ITS ---
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 Patient appears to be grossly ruptured and randal irregularly. The patient has had a fairly unremarkable course and there is been no concerns during her . Patient is GBS negative. Labs Rubella: Immune RPR: Negative GBS: Negative HBsAG: Negative Review of Systems Const: Denies: fever(s) or chills Eyes: Denies: change in vision ENMT: Denies: throat pain Card: Denies: chest pain, palpitations or irregular heart rhythm Resp: Denies: dyspnea or productive cough GI: Reports: abdominal pain, nausea and diarrhea; Denies: vomiting : Denies: flank pain or difficulty voiding Musc: Denies: back pain or extremity pain Skin/Breast: Denies: rash Neuro: Reports: headache(s) Medications/Allergies Home Medications ?Medication ?Instructions ?Recorded ?Confirmed ?Last Taken ?Type No Known Home Medications 12/01/2406/12 Unknown History Allergies Allergy/AdvReac Type Severity Reaction Status Date / Time No Known Allergies Allergy Verified 06/28/25 06:37 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 PFSH: Medical History (Updated 07/15/25 @ 07:58 by Doug Pride MD) Gross hematuria Recurrent UTI Surgical History S/P tonsillectomy and adenoidectomy H/O thumb surgery Family History Mother Healthy adult Father Healthy adult Social History Smoking and tobacco/nicotine status: never used tobacco/nicotine Alcohol intake: never Substance/Drug Use: never Marital status: Single Current occupational status: employed Vitals/I&O/Wt Last Vital Signs Pulse 95 07/15/25 07:36 Resp 18 07/15/25 07:18 BP 128/71 07/15/25 07:36 Physical Exam Const: COMMON NORMALS: no acute distress, healthy appearing and alert Resp: COMMON NORMALS: normal respiratory effort and No retractions Cardio: COMMON NORMALS: no JVD, regular rate and regular rhythm GI: OTHER: Gravid uterus Extremity: COMMON NORMALS: normal to inspection GENERAL: Yes edema Neuro: COMMON NORMALS: patient oriented x3, moves all extremities, no focal motor deficits and no sensory deficits noted Psych: COMMON NORMALS: mental status grossly normal and cooperative Results Labs OB ([facility]): Obstetrics 12/01/24 Blood Type A Positive 12/01/24 Hct, (36-47) 40.6 % 12/01/24 Hgb, (11.27-16.99) 13.60 g/dL 12/01/24 Rho(D) Type Rh positive 12/01/24 Plt Count, (157-399) 254 10^3/cmm 12/01/24 Ser , Semi-Qnt 19092.00 mIU/mL 12/01/24 HCG, Qual, (Negative) Positive H 12/01/24 Micro Urine Specimen 07/02/25 A&P Assessment and plan 1. Term : Proceed with routine labor management. Consider augmentation if significant cervical change is not noted. 2. Spontaneous rupture of amniotic membranes: PDMP PDMP Reviewed: Not Reviewed Attestations Medical Necessity Statement*: Patient admitted for labor. Anticipate at least 1 midnight stay Coding Level of Care Code Acute Code for Chg Fwd Diagnoses Term Z34.90 Spontaneous rupture of amniotic membranes
[2025-07-15 08:34] LABS: Hematocrit 33.5 % (36-47); Hemoglobin 10.80 g/dL (11.27-16.99); Mean Corpuscular HGB Conc 32.2 g/dL (30-55); Mean Corpuscular Hemoglobin 26.9 pg (27-33); Mean Corpuscular Volume 83.5 fl (85-98); Nucleated Red Blood Cells % 0 %; Platelet Count 228 10^3/cmm (157-399); Red Blood Count 4.01 10^6/uL (3.85-5.65); White Blood Count 7.95 10^3/uL (3.29-11.43)
[2025-07-15] MEDS: oxytocin 30 UNIT/500 ML BAG IV (10:30)
[2025-07-15] MEDS: ROPivacaine premix 200 MG/100 ML PREMIX 10 MG EPIDURAL ×2 (14:10→22:34)
--- NOTE | 2025-07-15 14:14 | ANES.PREANE2 ---
Pre-Anesthetic Assessment Height/Weight: Height 1.5 m Weight 88.451 kg Temp Pulse Resp BP Pulse Ox O2 Del Method 97.7 F 80 18 125/76 98 Room Air 07/15/25 12:00 07/15/25 14:11 07/15/25 12:31 07/15/25 14:11 07/15/25 14:10 07/15/25 07:15 Preop Diagnosis: uterine epidural Familial anesthetic complications: none Was Beta Dot taken within 24 hours: N/A Was Clonidine taken within 24 hours: N/A Social No alcohol and No tobacco Exam alert, oriented x 3, clear to auscultation bilaterally and regular rate & rhythm Airway Cervical ROM: within normal limits Mallampati: Class II Dentition: full History/ROS No significant history except as noted and No significant complaints Pulmonary None reported CV/HEM None reported None reported Hepatic None reported GI None reported Metabolic Morbid Obesity [facility]/skel None reported Neuropsych None reported Anesthetic Plan ASA status: 2 Anesthesia: Regional (specify below) (epidural) Risk of > 500 ml blood loss (7ml/kg in children): No Medications/Allergies Home Medications ?Medication ?Instructions ?Recorded ?Confirmed ?Last Taken ?Type No Known Home Medications 12/01/24 07/15/25 Unknown History Allergies Allergy/AdvReac Type Severity Reaction Status Date / Time No Known Allergies Allergy Verified 06/28/25 06:37 Current Medications Generic Name Dose Route Start Last Admin Trade Name Freq PRN Reason Stop Dose Admin Dextrose/Lactated Ringer's 1,000 mls @ 125 mls/hr 07/15/25 08:30 07/15/25 10:32 Dextrose 5%-Lactated Ringers IV 125 mls/hr .Q8H JEAN CLAUDE Administration Oxytocin 30 unit in 500 mls @ 1 mls/hr 07/15/25 10:15 07/15/25 12:45 Pitocin IV 17 milliunit/min .Q24H JEAN CLAUDE 17 mls/hr Protocol Titration 1 MILLIUNIT/MIN Lactated Ringer's 1,000 mls @ 999 mls/hr 07/15/25 12:59 07/15/25 13:07 Lactated Ringers IV 999 mls/hr .Q1H1M PRN Administration See label comments Ropivacaine 200 mg in 100 mls @ 10 mls/hr 07/15/25 13:00 07/15/25 14:10 Naropin Premix EPIDURAL 10 mls/hr .Q10H JEAN CLAUDE Administration PFSH Anesthesia Medical History (Updated 07/15/25 @ 07:58 by Doug Pride MD) Gross hematuria Recurrent UTI Surgical History S/P tonsillectomy and adenoidectomy H/O thumb surgery Family History Mother Healthy adult Father Healthy adult Social History Smoking and tobacco/nicotine status: never used tobacco/nicotine Alcohol intake: never Substance/Drug Use: never Marital status: Single Current occupational status: employed Female Reproductive History : 1 Data Anesthesia 07/15/25 07:54 Short CBC 07/15/25 Range/Units 07:54 WBC 7.95 (3.29-11.43) 10^3/uL Hgb 10.80 L (11.27-16.99) g/dL Hct 33.5 L (36-47) % MCV 83.5 L (85-98) fl Plt Count 228 (157-399) 10^3/cmm Neut % (Auto) 76.6 % Neut # (Auto) 6.10 (1.8-7.7) 10^3/uL Blood Bank 07/15/25 07:54 Blood Type A Positive Rho(D) Type Rh positive Antibody Screen Negative
--- NOTE | 2025-07-15 14:15 | ANES.PROC ---
Anesthesia Procedures Procedure/Date: 07/15/25 Epidural: Time Out Performed: Yes Consents Signed: Procedure Consent Consent: from patient, risks and benefits reviewed and patient agrees to proceed Lumbar Level: L4-L5 Epidural position: sitting Epidural procedure: sterile prep of area, 1% lidocaine to numb the area, 18 g needle, negative for paresthesia passed, neg for paresthesia, test dose given, 1.5% xylocaine 1:200k epi, 0.2% Ropivacaine bolus ml, placed PCEA, no systemic response, sterile dressing applied, L.U.D. no apparent complications and 0.2% Ropiavacaine @ mls/hr Additional Comments: MARYANNE at 9cm
[2025-07-15] MEDS: ondansetron 2 mg/ML SDV 2 mL 4 MG IVP (17:47)
--- NOTE | 2025-07-15 22:54 | PM.DELIVERY ---
Delivery Note: Date of delivery: July 15, 2025 Pre-delivery diagnoses: Term intrauterine Post-delivery diagnoses: Same, viable male Procedure: Spontaneous vaginal delivery Op report anesthesia: Epidural Estimated blood loss (mL): 250 Pre-Delivery Course: This is a 19-year-old G1, P1 that presented at 39 weeks 6 days due to spontaneous rupture of membranes. Patient was randal irregularly and not making cervical change so her labor was augmented with Pitocin. The patient made slow steady progress to completion without any significant complication. Delivery: Patient was placed into the normal lithotomy position once completely dilated and started completion with contractions. After approximately an hour and a half of pushing the patient delivered 's head and shoulder without difficulty. The infant was then placed onto mother's abdomen. After appropriate delay the cord was clamped and cut. Placenta was then delivered soon after. Review of the perineum did not demonstrate any significant tears that required repair. Uterus was firm and bleeding was managed at the end of the procedure. Post-Delivery Status: Stable A&P Assessment and plan 1. Normal spontaneous vaginal delivery: Proceed with routine post care PDMP PDMP Reviewed: Not Reviewed Coding Level of Care Code Acute Code for Chg Fwd Diagnoses Normal spontaneous vaginal delivery O80
[2025-07-16] VITALS (15 sets, daily range): BP systolic 118–138; BP diastolic 66–82; PULSE 81–108; RESP 14–16; TEMP 36.4–37.1; O2SAT 96–98
[2025-07-16] MEDS: benzocaine-menthol 78 gm Canister 1 SPRAY TOPICAL (00:13)
[2025-07-16] MEDS: PRENATAL VIT NO.130/IRON/FOLIC 1 EACH TABLET PO (04:56)
--- NOTE | 2025-07-16 07:26 | PM.OBGYPN ---
LICENSED PROSTHETIST/ORTHOTIST Subjective Subjective: Interval history: This is a 19-year-old G1, P1 that is status post vaginal delivery x 1 day. The patient has been up ambulating and urinated without difficulty. Vital signs have been stable. Patient reports breast-feeding without difficulty. The patient states that her pain is under control no concerns about lochia. Labor: Station: 0 Amniotic Membrane Status: Ruptured Monitor Mode: External Contraction Pattern: Regular Status: Category I Post /CS: Patient comments OB post-: no complaints and pain well controlled baby status: doing well and nursing well [place] feeding status: exclusively breast feeding Vitals/I&O/Wt Last Vital Signs Temp 98.7 F 07/16/25 03:45 Pulse 93 07/16/25 06:45 Resp 14 07/16/25 06:45 BP 127/82 07/16/25 06:45 Pulse Ox 97 07/16/25 06:45 O2 Del Method Room Air 07/16/25 06:45 07/15/25 07/16/25 07/16/25 22:59 06:59 14:59 Intake Total 2228.417 / 2247.667 Output Total 300 / 300 Balance 1928.417 / 1947.667 Weight last 48 hrs Weight 88.451 kg Physical Exam Const: COMMON NORMALS: no acute distress, patient oriented x3, healthy appearing and alert Neck/C-Spine: COMMON NORMALS: no JVD Resp: COMMON NORMALS: normal respiratory effort and No retractions Cardio: COMMON NORMALS: no JVD, regular rate and regular rhythm RATE: regular rate RHYTHM: regular rhythm GI: OTHER: Uterus firm and below umbilicus Extremity: COMMON NORMALS: normal to inspection GENERAL: Yes edema Neuro: COMMON NORMALS: patient oriented x3, moves all extremities, no focal motor deficits and no sensory deficits noted SENSORIUM/ORIENTATION: Yes alert Psych: COMMON NORMALS: mental status grossly normal and cooperative Urinary Catheter Management: Nichols Latex: Cath Placed During This Visit: yes, but has since been removed by the nurse Reason for Continuing Indwelling Catheter: Decision to DC Catheter Urinary Catheter Date of Insertion: 07/15/25 Urinary Catheter Time of Insertion: 14:49 Date Urinary Catheter Removed: 07/15/25 Time Urinary Catheter Discontinued: 21:30 Data 07/15/25 07:54 A&P Assessment and plan 1. Normal spontaneous vaginal delivery: Continue with routine care. PDMP PDMP Reviewed: Not Reviewed Attestations Medical Necessity Statement*: Patient admitted for spontaneous rupture membranes and labor. Anticipate discharge tomorrow Coding Level of Care Code Acute Code for Chg Fwd Diagnoses Normal spontaneous vaginal delivery O80
[2025-07-16 11:08] LABS: Hematocrit 30.1 % (36-47); Hemoglobin 9.80 g/dL (11.27-16.99); Mean Corpuscular HGB Conc 32.6 g/dL (30-55); Mean Corpuscular Hemoglobin 27.9 pg (27-33); Mean Corpuscular Volume 85.8 fl (85-98); Platelet Count 194 10^3/cmm (157-399); Red Blood Count 3.51 10^6/uL (3.85-5.65); White Blood Count 12.60 10^3/uL (3.29-11.43)
[2025-07-17] MEDS: PRENATAL VIT NO.130/IRON/FOLIC 1 EACH TABLET PO (05:09)
[2025-07-17 05:11] VITALS: BP 117/83; PULSE 105; RESP 15; TEMP 36.6; TEMP 36.7; O2SAT 96
--- NOTE | 2025-07-17 07:48 | PM.OBGYDC ---
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 Normal spontaneous vaginal delivery: Reason for Visit Reason for Visit: ROM Hospital Course Hospital Course The patient presented to the hospital with spontaneous rupture membranes. Her labor was augmented with Pitocin. She made steady progress and ended up having a spontaneous vaginal delivery without complications. She did not have any significant tears. Her course is also been unremarkable. Her bleeding has been within normal limits. She been breast-feeding well. Her pain is been well-controlled. Information Peripartum Data: Delivery Method: Vaginal Physical Exam Narrative: The patient is alert. She appears comfortable. Her heart has a regular rate and rhythm with no murmurs appreciated. Lungs are clear to auscultation bilaterally. Her fundus is firm and below the umbilicus. Urinary Catheter Management: Nichols Latex: Cath Placed During This Visit: yes, but has since been removed by the nurse Reason for Continuing Indwelling Catheter: Decision to DC Catheter Urinary Catheter Date of Insertion: 07/15/25 Urinary Catheter Time of Insertion: 14:49 Date Urinary Catheter Removed: 07/15/25 Time Urinary Catheter Discontinued: 21:30 Discharge Data Studies Completed and Pending Laboratory Results WBC 12.60 10^3/uL (3.29-11.43) H 07/16/25 10:55 RBC 3.51 10^6/uL (3.85-5.65) L 07/16/25 10:55 Hgb 9.80 g/dL (11.27-16.99) L 07/16/25 10:55 Hct 30.1 % (36-47) L 07/16/25 10:55 MCV 85.8 fl (85-98) 07/16/25 10:55 MCH 27.9 pg (27-33) 07/16/25 10:55 MCHC 32.6 g/dL (30-55) 07/16/25 10:55 RDW 14.7 % (12.1-15.1) 07/16/25 10:55 Plt Count 194 10^3/cmm (157-399) 07/16/25 10:55 MPV 10.8 fL (7.4-10.4) H 07/16/25 10:55 Neut % (Auto) 76.6 % 07/15/25 07:54 Lymph % (Auto) 16.1 % 07/15/25 07:54 [place] % (Auto) 5.7 % 07/15/25 07:54 Eos % (Auto) 0.4 % 07/15/25 07:54 Baso % (Auto) 0.3 % 07/15/25 07:54 Neut # (Auto) 6.10 10^3/uL (1.8-7.7) 07/15/25 07:54 Lymph # (Auto) 1.3 10^3/uL (0.8-4.8) 07/15/25 07:54 [place] # (Auto) 0.5 10^3/uL (0.2-0.9) 07/15/25 07:54 Eos # (Auto) 0.0 10^3/uL (0.0-0.8) 07/15/25 07:54 Baso # (Auto) 0.0 10^3/uL (0.0-0.1) 07/15/25 07:54 Nucleated RBC % (auto) 0 % 07/15/25 07:54 Nucleated RBCs # 0.0 /100WBC 07/15/25 07:54 Blood Type A Positive 07/15/25 07:54 Rho(D) Type Rh positive 07/15/25 07:54 Antibody Screen Negative 07/15/25 07:54 Vitals Last Vital Signs Temp 98.0 F 07/17/25 05:11 Pulse 105 H 07/17/25 05:11 Resp 15 07/17/25 05:11 BP 117/83 07/17/25 05:11 Pulse Ox 96 07/17/25 05:11 O2 Del Method Room Air 07/17/25 05:11 Results Labs OB ([facility]): Obstetrics US 12/01/24 Blood Type A Positive 07/15/25 Antibody Screen Negative 07/15/25 Hct, (36-47) 30.1 % L 07/16/25 Hgb, (11.27-16.99) 9.80 g/dL L 07/16/25 Rho(D) Type Rh positive 07/15/25 Plt Count, (157-399) 194 10^3/cmm 07/16/25 Ser , Semi-Qnt 10672.00 mIU/mL 12/01/24 HCG, Qual, (Negative) Positive H 12/01/24 Micro Urine Specimen 07/02/25 Discharge Plan Discharge Patient Disposition: Home Condition: Stable Prescriptions: New Vitamin 27 mg iron- 800 mcg Tablet 1 tab PO DAILY Qty: 90 0RF ibuprofen 800 mg Tablet 800 mg PO TID Qty: 45 0RF Discharge Order = DC NOW: Discharge Order (Routine); Ordered 07/17/25 Ordered By: Harinder Avila Referrals: Doug Pride MD [Physician, Family Practice] - 6 Weeks Discharge Diet: Usual diet Discharge Activity: Limit activity as instructed Patient Instructions: Opioid Safety, Patient Portal & Arnel Instructions Discharge Attestations ANIMAL 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
[2025-07-17 11:12] VITALS: BP 134/94; PULSE 100; RESP 16; TEMP 36.7; O2SAT 98
== END 2025-07-17 11:14 | disposition home or self-care (01) | DRG 560 ==
LOC: OPOB 07:49 → OBGYN 07:49
PROVIDERS: Admitting Provider Family Medicine; Visit Provider Family Medicine
DX: O80 Encounter for full-term uncomplicated delivery (principal); Z3A.39 39 weeks gestation of pregnancy; Z37.0 Single live birth
CPT/HCPCS: 36415; 51702; 59409; 85025; 85027; 86850; 86900; J2405; J2590; J2795; J7120; J7121; J9999